=== PATIENT | male | born 1995 | race Hispanic/Latino ===

== ENCOUNTER 2018-02-18 19:11 | Emergency (ER) | payer OTHER ==
[2018-02-18 22:32] VITALS: BP 117/61
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
[2018-02-18 22:49] LABS: Basophils # (Auto) 0.1 K/mm3 (0.0-0.1); Basophils % (Auto) 0.7 % (0.0-1.8); Eosinophils % (Auto) 0.6 % (0.0-4.3); Hematocrit 40.7 % (35.5-45.6); Hemoglobin 13.6 gm/dl (11.8-15.2); Lymphocytes # (Auto) 2.3 K/mm3 (1.2-5.4); Lymphocytes % (Auto) 27.8 % (13.4-35.0); Mean Corpuscular HGB Conc 34 % (32-34); Mean Corpuscular Hemoglobin 29 pg (28-32); Mean Corpuscular Volume 86 fl (84-94); Monocytes # (Auto) 0.4 K/mm3 (0.0-0.8); Monocytes % (Auto) 5.2 % (0.0-7.3); Platelet Count 234 K/mm3 (140-440); Red Blood Count 4.72 M/mm3 (3.65-5.03); Red Cell Distribution Width 13.1 % (13.2-15.2)
[2018-02-18] MEDS ORDERED: ATIVAN PO ONE (22:52)
[2018-02-18] MEDS ORDERED: TYLENOL PO PRN (22:52)
[2018-02-18] MEDS ORDERED: ALUM-MAG HYDROX-SIMETH 200-200-20MG/5ML PO PRN (22:52)
[2018-02-18] MEDS ORDERED: MILK OF MAGNESIA PO PRN (22:52)
[2018-02-18 23:07] LABS: BUN/Creatinine Ratio 7; Blood Urea Nitrogen 4 mg/dL (9-20); Calcium 9.6 mg/dL (8.4-10.2); Hemolysis Index 6
[2018-02-18 23:43] LABS: Bilirubin,Urine NEG (Negative); Blood,Urine SM (Negative); Color,Urine Straw (Yellow); Protein,Urine <15 mg/dL mg/dL (Negative); Urobilinogen,Urine < 2.0 mg/dL (<2.0)
[2018-02-18 23:46] LABS: Amphetamine Screen,Urine PRESUMPTIVE NEGATIVE; Benzodiazepines Screen,Urine PRESUMPTIVE NEGATIVE; Cocaine Screen,Urine PRESUMPTIVE NEGATIVE; Methadone Screen,Urine PRESUMPTIVE NEGATIVE; Opiate Screen,Urine PRESUMPTIVE NEGATIVE
[2018-02-18 23:59] LABS: RBC,Urine < 1.0 /HPF (0.0-6.0); WBC,Urine < 1.0 /HPF (0.0-6.0)
[2018-02-19 00:17] LABS: Cannabinoid Screen,Urine PRESUMPTIVE POSITIVE
--- NOTE | 2018-02-19 16:10 | Consultation ---
History of Present Illness - Reason for Consult Consult date: 02/19/18 Reason for consult: Mental Health Evaluation Requesting physician: NAV BAIG - Chief Complaint Chief complaint: "I didn't do anything" - History of Present Psychiatric Illness 22-year-old white male presenting to the ER for aggressive behavior. Today the patient is calm during the assessment. He was vague with his answers reference how he ended up in the ER. He stated that he didn't do anything wrong. He acknowledged getting mad all the time. He stated smoking marijuana "often." He denies SI/HI's and AVH's. He denies excessive alcohol consumption (etoh). Medications and Allergies Allergies Allergy/AdvReac Type Severity Reaction Status Date / Time No Known Allergies Allergy Verified 02/19/18 01:19 Home Medications Medication Instructions Recorded Confirmed Last Taken Type Unobtainable 02/18/18 02/18/18 Unknown History Past psychiatric history - Past Medical History Past Medical History: No medical history Past Surgical History: No surgical history - past Psychiatric treatment and history psychiatric treatment history: Denies a psy hx and fam psy hx. - Social History Social history: lives with family Mental Status Exam - Vital signs Last Vital Signs Temp 97.9 F 02/18/18 21:36 Pulse 56 L 02/18/18 21:36 Resp 16 02/18/18 21:36 BP 117/61 02/18/18 21:36 Pulse Ox 100 02/18/18 21:36 - Exam Narrative exam: MSE: Appearance: calm, cooperative Behavior: regular eye contact Speech: regular rate and tone Mood: "okay" Affect: flat Thought Process: circumstantial Thought Content: denies SI/HI's and AVH's Motor Activity: lying in bed Cognition: A/O x 3 Insight: variable Judgment: variable Results Result Diagrams: 02/18/18 22:06 02/18/18 22:06 Abnormal lab results 02/18/18 02/18/18 02/18/18 Range/Units 22:06 22:06 22:28 RDW 13.1 L (13.2-15.2) % BUN 4 L (9-20) mg/dL Creatinine 0.6 L (0.8-1.5) mg/dL Ur Specific [place] 1.001 L (1.003-1.030) All other labs normal. Assessment and Plan Assessment and plan: Impression: Unspecified Mood DO. Cannabis Use DO. Today the patient is calm during the assessment. DDx: R/O Bipolar DO Recommendation/Plan: Continue 1013 with placement to [facility] today.
== END 2018-02-19 12:55 ==
LOC: EEVIPCON 19:11 → ED 19:11
DX: F31.4 Bipolar disorder, current episode depressed, severe, without psychotic features (principal); F20.9 Schizophrenia, unspecified; F12.10 Cannabis abuse, uncomplicated; F17.200 Nicotine dependence, unspecified, uncomplicated; Z79.899 Other long term (current) drug therapy
CPT/HCPCS: 36415; 80048; 80307; 81001; 85025; 99285; G0480; 80320